=== PATIENT | female | born 1960 | race Caucasian/White ===

== ENCOUNTER 2017-04-28 10:53 | Emergency (ER) | payer BC, OTHER ==
[~2017-04-28] VITALS: Ht 177.8 cm; Wt 83.9 kg
[~2017-04-28 10:53] MED LIST: BENICAR5 MG ORAL; FISH OIL300 M1 PO; IBUPROFEN600 MG ORAL; LANTUS SOL100 UNIT/1 SUBQ; LANTUS100 UNIT/2 SUBQ; NOVOLOG100 UNIT/3 SUBQ; PREDNISONE5 MG ORAL; SYNTHROID75 MCG ORAL; VITAMIN D400 INTLU ORAL
[2017-04-28] MEDS ORDERED: METFORMIN HCL500 M1 ORAL (11:03)
[2017-04-28] MEDS ORDERED: PREDNISONE10 MG ORAL (11:03)
[2017-04-28] MEDS ORDERED: Norco 5mg/325mg tab PO ONE (11:15)
[2017-04-28] MEDS ORDERED: Morphine Sulfate 4mg/ml Inj IM ONE (11:30)
[2017-04-28] MEDS ORDERED: TRAMADOL HCL50 MG ORAL (12:28)
[2017-04-28] MEDS ORDERED: KEFLEX500 MG ORAL (12:28)
[2017-04-28] MEDS ORDERED: RANITIDINE HCL150 MG ORAL (12:28)
[2017-04-28] MEDS ORDERED: IBUPROFEN600 MG ORAL (12:28)
[2017-04-28] MEDS ORDERED: Ketorolac 30mg Inj IM ONE (12:30)
[2017-04-28 12:40] VITALS: BP 136/76
--- NOTE | 2017-04-28 15:10 | Diagnostic Imaging Report ---
Indication: Pain Comparison: None Findings: 3 views of the right foot were obtained. No acute fractures, malalignment, erosions or periostitis are identified. Bone mineralization is within normal limits. Soft tissues are unremarkable. Impression: Negative examination of the right foot.
--- NOTE | 2017-04-29 07:38 | Emergency Room Report ---
History of Present Illness General Chief Complaint: Lower Extremity Injury Source: Patient Present Illness HPI 57-year-old female presents ED complaining of right foot pain and swelling. States that symptoms started approximately 2 days ago. Notes swelling around the right big toe extending into the foot. Some streaking noted. Feels warm to touch. States pain is a 10 out of 10, throbbing, nonradiating. Patient recalls stubbing her big toe 2 weeks ago but states there were no symptoms after. Patient states she is a diabetic but takes good care of of her feet and does not recall any recent cuts or scrapes to the foot. No other aggravating or relieving factors. Denies any other associated symptoms Allergies: Coded Allergies: PENICILLINS (Verified Allergy, Severe, 01/29/14) CODEINE (Verified Allergy, Intermediate, Anaphylaxis, 04/10/13) LATEX (Verified Allergy, Intermediate, Rash, 04/10/13) & SWELLING Patient History Past Medical History: DM, asthma, COPD Pertinent Family History: none Social History: Denies: alcohol use, drug use, smoking Last Menstrual Period: hysterectomy in 2006 Now: No : 3 Para: 3 Immunizations: UTD Reviewed Nursing Documentation: PMH: Agreed, PSxH: Agreed Nursing Documentation-PMH Past Medical History: No History, Except For Hx Cardiac Problems: Yes Hx Hypertension: Yes Hx Asthma: Yes Hx COPD: Yes Hx Diabetes: Yes Hx Cancer: No Hx Gastrointestinal Problems: Yes - celiac disease, fatty liver Hx Neurological Problems: No Review of Systems All Other Systems: negative except mentioned in HPI Physical Exam Vital Signs Date Time Temp Pulse Resp B/P Pulse Ox O2 Delivery O2 Flow Rate FiO2 04/28/17 10:59 97.5 85 18 131/83 95 Room Air Sp02 EP Interpretation: reviewed, normal General Appearance: alert, GCS 15, non-toxic, mild distress Head: normocephalic Eyes: bilateral eye PERRL, bilateral eye normal inspection ENT: normal ENT inspection Neck: normal inspection Respiratory: normal inspection Cardiovascular #1: normal inspection Gastrointestinal: normal inspection Rectal: deferred Genitourinary: no CVA tenderness Musculoskeletal: swelling - R big toe, extending into dorsum of foot Neurologic: alert, oriented x3, responsive, motor strength/tone normal, sensory intact, speech normal Psychiatric: judgement/insight normal, memory normal, mood/affect normal, no suicidal/homicidal ideation Skin: other - steraking noted on R foot Lymphatic: normal inspection Medical Decision Making Diagnostic Impression: Primary Impression: Cellulitis of foot ER Course Hospital Course 57-year-old F presents to ED complaining of R foot pain/swelling Differential diagnoses include: Fracture, dislocation, sprain, contusion Clinical course Patient placed on stretcher. After initial history and physical, I ordered pain medications and Xrays of R foot Xrays prelim read shows no acute fracture/dislocation. Given the warmth and swelling with streaking, concern for a cellulitis Discussed with PMD Dr. Palacio; agreed to start patient on antibiotics and appropriate analgesic Diagnosis - cellulitis of foot Stable and discharged to home with prescription for Tramadol, Keflex. apply warm compresses, keep elevated. weight bear as tolerated. Followup with PMD. Return to ED if symptoms recur or worsen Other X-Ray Diagnostic Results Other X-Ray Diagnostic Results : X-Ray ordered: R foot # of Views/Limited Vs Complete: 3 View Indication: Swelling EP Interpretation: Yes Interpretation: no dislocation, no soft tissue swelling, no fractures Impression: No acute disease Interpreting ER Provider: electronically signed by Valentino Adams MD Last Vital Signs Date Time Temp Pulse Resp B/P Pulse Ox O2 Delivery O2 Flow Rate FiO2 04/28/17 12:40 79 18 136/76 99 Room Air 04/28/17 12:15 97.9 Status: improved Disposition: HOME, SELF-CARE Condition: Stable Scripts Cephalexin* (KEFLEX*) 500 Mg Capsule 500 MG ORAL Q6H, #28 CAP 0 Refills Prov: VALENTINO ADAMS M.D. 04/28/17 Ranitidine Hcl* (ZANTAC*) 150 Mg Tablet 150 MG ORAL TWICE A DAY, #30 TAB Prov: VALENTINO ADAMS M.D. 04/28/17 Tramadol Hcl* (ULTRAM*) 50 Mg Tablet 50 MG ORAL Q6H Y for For Pain, #30 TAB 0 Refills Prov: VALENTINO ADAMS M.D. 04/28/17 Ibuprofen* (MOTRIN*) 600 Mg Tablet 600 MG ORAL Q8H Y for For Pain, #30 TAB 0 Refills Prov: VALENTINO ADAMS M.D. 04/28/17 Patient Instructions: Cellulitis, [id number] VALENTINO ADAMS M.D. Apr 29, 2017 07:38
== END 2017-04-28 12:40 | disposition home or self-care (01) ==
LOC: EMR 11:26
DX: L03.115 Cellulitis of right lower limb (principal); E11.9 Type 2 diabetes mellitus without complications; I10 Essential (primary) hypertension; J44.9 Chronic obstructive pulmonary disease, unspecified; Z88.0 Allergy status to penicillin; Z88.6 Allergy status to analgesic agent; Z91.040 Latex allergy status; K90.0 Celiac disease; Z90.710 Acquired absence of both cervix and uterus
CPT/HCPCS: 73630; 96372; 99284; J1885; J2270